=== PATIENT | male | born 1975 | race American Indian/Alaskan Native ===

== ENCOUNTER 2016-08-17 17:58 | Emergency (ER) | payer BC ==
[2016-08-17 18:40] LABS: Basophils % (Auto) 0.8 % (0.0-1.8); Hematocrit 38.6 % (35.5-45.6); Hemoglobin 12.7 gm/dl (11.8-15.2); Mean Corpuscular HGB Conc 33 % (32-34); Mean Corpuscular Hemoglobin 29 pg (28-32); Mean Corpuscular Volume 88 fl (84-94); Platelet Count 202 K/mm3 (140-440); Red Cell Distribution Width 14.3 % (13.2-15.2); White Blood Count 6.3 K/mm3 (4.5-11.0)
[2016-08-17 18:50] LABS: Anion Gap 17 mmol/L; BUN/Creatinine Ratio 15.88; Blood Urea Nitrogen 27 mg/dL (9-20); Calcium 9.3 mg/dL (8.4-10.2); Carbon Dioxide 26 mmol/L (22-30); Chloride 94.4 mmol/L (98-107); Glucose 443 mg/dL (75-100); Potassium 4.7 mmol/L (3.6-5.0); Sodium 133 mmol/L (137-145)
[2016-08-17 18:53] LABS: INR 0.98 (0.87-1.13); Partial Thromboplastin Time 26.7 Sec. (24.2-36.6)
[2016-08-18] MEDS ORDERED: NACL 0.9% 1000 ML 1,000 ML IV ONE (00:34)
--- NOTE | 2016-08-18 01:54 | Emergency Department Report ---
HPI - General Chief Complaint: Chest Pain Time Seen by Provider: 08/17/16 23:46 - HPI HPI: This is a 41-year-old -[place] male presents to the emergency department with a complaint of palpitations that been going on intermittently over the past couple weeks. While the patient does not currently have any chest pain or shortness of breath, he says that sometimes he will get some twinges into the left side of the chest and shoulder and occasionally some shortness of breath off and on while working. The patient works as a otr truck driver. He has not taken anything for symptoms prior to presentation. He has a history of diabetes on both pills and insulin, acid reflux, hypertension and hypercholesterolemia. He has a primary care doctor but has not seen them regarding his symptoms. He denies any history of TN, CVA, PE/DVT. Patient denies any significant caffeine use. He denies any energy drinks or over-the- counter energy pills while working. ED Past Medical Hx - Past Medical History Hx Hypertension: Yes Hx Diabetes: Yes Hx GERD: Yes Additional medical history: HIGH CHOLESTEROL - Surgical History Past Surgical History?: No - Social History Smoking Status: Light Tobacco Smoker Substance Use Type: Alcohol ED Review of Systems ROS: Stated complaint: HEART PALPITATIONS Other details as noted in HPI Comment: All other systems reviewed and negative Constitutional: denies: chills, fever Eyes: denies: eye pain, eye discharge, vision change ENT: denies: ear pain, throat pain Respiratory: denies: cough, wheezing Cardiovascular: palpitations. denies: edema Gastrointestinal: denies: abdominal pain, nausea, diarrhea Genitourinary: denies: urgency, dysuria Musculoskeletal: denies: back pain, joint swelling, arthralgia Skin: denies: rash, lesions Neurological: denies: headache, weakness, paresthesias Physical Exam - Physical Exam Vital Signs: Vital Signs 08/17/16 18:02 Temperature 98.5 F Pulse Rate 86 Respiratory 16 Rate Blood Pressure 128/81 O2 Sat by Pulse 97 Oximetry Physical Exam: GENERAL: The patient is well-developed well-nourished. HEENT: Normocephalic. Atraumatic. Extraocular motions are intact. Patient has moist mucous membranes. Pupils equal reactive to light bilaterally. NECK: Supple. Trachea is midline. CHEST/LUNGS: Clear to auscultation. There is no respiratory distress noted. HEART/CARDIOVASCULAR: Regular. There is no tachycardia. There is no gallop rub or murmur. ABDOMEN: Abdomen is soft, nontender. Patient has normal bowel sounds. There is no abdominal distention. SKIN: There is no rash. There is no edema. There is no diaphoresis. NEURO: The patient is awake, alert, and oriented. The patient is cooperative. The patient has no focal neurologic deficits. The patient has normal speech. Cranial nerves II through XII grossly intact. MUSCULOSKELETAL: There is no tenderness or deformity. There is no limitation range of motion. There is no evidence of acute injury. ED Course Vital Signs 08/17/16 18:02 Temperature 98.5 F Pulse Rate 86 Respiratory 16 Rate Blood Pressure 128/81 O2 Sat by Pulse 97 Oximetry ED Medical Decision Making - Lab Data Result diagrams: 08/17/16 18:22 08/17/16 18:22 - EKG Data -: EKG Interpreted by Me EKG shows normal: sinus rhythm, axis, intervals, QRS complexes, ST-T waves Rate: normal - EKG Data When compared to previous EKG there are: previous EKG unavailable Interpretation: normal EKG - Radiology Data Radiology results: image reviewed interpreted by me: Chest x-ray did not show any acute process. Heart is normal shape and size. No effusions. No pneumothorax. No signs of pneumonia seen. - Medical Decision Making This is a 41-year-old male who presents to the emergency department with the need for evaluation of his palpitations. This is a acute on chronic issue for this patient. The patient also says that over the past few weeks he has some intermittent left-sided chest pains or twinges and some intermittent shortness of breath while working. However the patient says that he does not have any of the symptoms today. He has a past medical history of diabetes, hypertension, hypercholesterolemia. He had an EKG that is completely normal without signs of ST elevation TN, ischemia or dysrhythmia. Patient has had negative troponins 3. He had a negative d-dimer. There are no electrolyte abnormalities, signs of infection and the patient has normal thyroid function. The patient does have hyperglycemia with a blood sugar of about 450. It was rechecked once he got back to the main emergency department and it was closer to 300. He was given 7 units of subcutaneous insulin. The patient will go home and recheck his blood sugar and restart his diabetes medication regiment. He admits to occasional noncompliance with taking his metformin twice daily. We also discussed dietary changes to make. He does not have a elevated anion gap and does not appear to be in type but a ketoacidosis or HHNK. He had a chest x-ray that does not show any acute process. Patient's labs also show some mild renal insufficiency with creatinine of 1.7 and a GFR of 53%. Since the patient does not have any current chest pain, shortness of breath and does not appear to be in any acute distress, he appears safe for discharge home at this time. He has a primary care doctor to follow up regarding his hyperglycemia and renal insufficiency. He will be given a referral for cardiology for evaluation of his palpitations and occasional chest pains. He will return to the ER with any recurrence of chest pain, shortness of breath or any acute distress. He understands and agrees to the plan. - Differential Diagnosis hypothyroidism, DKA, HHNK, TN, PE Critical Care Time: No Critical care attestation.: If time is entered above; I have spent that time in minutes in the direct care of this critically ill patient, excluding procedure time. ED Disposition Clinical Impression: Palpitations, Palpitations, Hyperglycemia, Renal insufficiency Disposition: DISCHARGED TO HOME OR SELFCARE Is pt being admited?: No Condition: Stable Instructions: Impaired Kidney Function (ED), Diabetic Hyperglycemia (ED), Palpitations (ED) Additional Instructions: Please follow-up with your primary care doctor in the next few days without fail. I have given you referral for a local electrolysist, Dr. Sellers, follow-up regarding your palpitations and occasional chest pains. Return to the emergency department with any recurrence of your chest pain or any acute distress. I recommend checking her blood sugar at home tonight before going to bed to make sure that you had a stable blood sugar since getting insulin in the emergency department this evening. Check your blood sugar again tomorrow morning upon waking and if it is not too low I would restart her normal diabetes medication regiment. Try to stay away from foods that are high in sugar, carbs and starches to assist with your diabetes. Referrals: PRIMARY CARE, [Primary Care Provider] - 3-5 Days LINDEN SELLERS MD [Staff Physician] - 3-5 Days Time of Disposition: 01:59
[2016-08-18 02:29] VITALS: BP 105/65
--- NOTE | 2016-08-18 09:56 | XRay Report ---
AP CHEST: HISTORY: chest pain AP view of the chest demonstrates a normal mediastinal and cardiac contour with clear lungs and normal bony and soft tissue structures. IMPRESSION: Unremarkable AP chest.
== END 2016-08-18 02:29 | disposition home or self-care (01) ==
LOC: ED 17:58
DX: R00.2 Palpitations (principal); N28.9 Disorder of kidney and ureter, unspecified; E11.65 Type 2 diabetes mellitus with hyperglycemia; K21.9 Gastro-esophageal reflux disease without esophagitis; E78.00 Pure hypercholesterolemia, unspecified; Z72.0 Tobacco use
CPT/HCPCS: 36415; 71010; 80048; 82805; 82962; 84443; 84484; 85025; 85379; 85610; 85730; 93005; 93010; 96372; J1815